=== PATIENT | male | born 1960 | race Caucasian/White ===

== ENCOUNTER → 2016-04-22 | Outpatient (CLI) | payer BC ==
[~2016-04-22] MED LIST: ASA325 MG PO; BISACODYL5 MG PO; FLEXERIL-DPS10 MG PO; LIPITOR DPS20 MG PO; OXY IR DPS5 MG PO; PROTONIX40 MG PO; SENOKOT S1 TAB PO; TYLENOL DPS325 MG PO; ULTRAM DPS50 MG PO
== END | disposition home or self-care (01) ==
LOC: RAD.S 09:21
DX: M79.661 Pain in right lower leg (principal)